=== PATIENT | female | born 1965 | race Caucasian/White ===

== ENCOUNTER → 2024-04-19 12:02 | Outpatient (REF) | payer OTHER, SELFPAY | LOC: HWRAD 12:02 | PROVIDERS: ATTENDING PHYSICIAN Nurse Practitioner Family | DX: M25.562 Pain in left knee (principal) | CPT/HCPCS: 73564 ==

== ENCOUNTER → 2024-04-30 14:06 | Outpatient (REF) | payer OTHER, SELFPAY | LOC: WDC 14:06 | PROVIDERS: ATTENDING PHYSICIAN Physician Assistant | DX: Z12.31 Encounter for screening mammogram for malignant neoplasm of breast (principal) | CPT/HCPCS: 77063; 77067 ==

== ENCOUNTER 2024-05-17 14:44 | Emergency (ER) | payer OTHER, SELFPAY ==
--- NOTE | 2024-05-17 14:49 | ED.MUSCINJ ---
HPI-Injury
<Elsa Kumari NP - Last Filed: 05/17/24 14:54>
General
Chief Complaint: Musculo-Skeletal Complaint
Time Seen by Provider: 05/17/24 15:49
<Tyler Armendariz PA-C - Last Filed: 05/17/24 20:21>
History of Present Illness-Injury
Initial Injury comments:
58-year-old female presents to the emergency department for evaluation of left knee pain for the past 3 months, acutely worse in the past 2 days. Denies any acute injuries or trauma. She feels excruciating pain to the medial joint when ambulating
or when attempting to range the knee. She is scheduled for an MRI next week and plans to see an orthopedist thereafter, has been taking intermittent doses of ibuprofen without much relief
ED Provider Triage
<Elsa Kumari FAMILY PARTNER - Last Filed: 05/17/24 14:54>
-
Patient seen by provider in Triage?: Seen in Triage
Attestation: A medical screening examination has been initiated by a qualified medical provider. Based on the assessment performed at this time, it has been determined that an emergent medical condition may exist and the patient has been informed
that further medical evaluation and possible additional diagnostic testing may be needed.
HPI: 58 yo female here for pain, swelling left knee. In Jan, doing pilates, sprained the left knee, later, injured it further walking up steps. Trouble walking, PCP ordered xray 04/19 which was neg. awaiting MRI 05/26 but today pain got suddenly
worse after grocery shopping, putting stuff away, wearing elastic brace, twisted the knee and now can't bear weight or move the knee without significant pain. Pain now 03/02, took nothing for the pain.
GENERAL: Alert , in no apparent distress
EYE: No visual abnormalities.
ENT: No visible abnormalities.
LUNGS: No acute respiratory distress
NEUROLOGICAL: Alert and oriented
SKIN: Skin intact. No visible changes.
MUSCULOSKELETAL: Moving extremities normally
PSYCH: Normal and appropriate interaction.
This is a medical evaluation conducted in person to initiate diagnostic evaluation and provide initial therapeutics. Please see further documentation by the treating clinician.
Past History
<Elsa Kumari FAMILY PARTNER - Last Filed: 05/17/24 14:54>
Past History
ED Past Medical History: Other (Adhesive capsulitis left shoulder)
ED Past Surgical History: , Orthopedic (Right ankle fracture repair) and Other (Inguinal hernia repair)
Social History
Tobacco: Non-smoker
Alcohol: Occasional
Drug: None
Personal:
Living: with family
Employment: Employed
Family History
Family History: Other (Noncontributory)
Review of Systems
<Tyler Armendariz PA-C - Last Filed: 05/17/24 20:21>
Review of Systems
Allergies reviewed?: Yes
All Other Systems: ROS reviewed and negative except as documented in HPI and ROS
Phy Exam
<Tyler Armendariz PA-C - Last Filed: 05/17/24 20:21>
Physical Exam
Physical Exam:
GEN: Well appearing, NAD, WDWN
HEENT: Oral mucosa moist, no scleral icterus
Cardiac: Regular rate
Lung: No respiratory distress, no tachypnea
MSK: No gross deformity or injuries. No left knee effusion, range of motion fully intact without crepitus however significant pain noted on exam. Negative medial laxity
Skin: Good color, no pallor or jaundice, no rashes
Neuro: AO x3, moves all extremities freely
Psych: Calm, cooperative
Injury Course
<Elsa Kumari FAMILY PARTNER - Last Filed: 05/17/24 14:54>
Orders/Labs/Results
Orders:
Orders
05/17/24 15:50
Ketorolac [Toradol] 30 mg IM NOW STA
<Tyler Armendariz PA-C - Last Filed: 05/17/24 20:21>
Orders/Labs/Results
Orders:
Orders
05/17/24 15:50
Ketorolac [Toradol] 30 mg IM NOW STA
<Tyler Armendariz PA-C - Last Filed: 05/17/24 20:21>
MDM/Problems Addressed
MDM/Problems Addressed:
Likely meniscus injury versus cartilaginous disruption versus bone bruise. As she has an upcoming MRI scheduled do not see any indication for x-ray at this time. Will treat with NSAIDs and knee immobilizer, weightbearing as tolerated, recommend
orthopedic follow-up
<Tyler Armendariz PA-C - Last Filed: 05/17/24 20:21>
*Critical Care Note
Total Time (30-74mins, 75-104mins- exclusive of procedures): Not Applicable
ED Attending Note
<Elsa Kumari FAMILY PARTNER - Last Filed: 05/17/24 14:54>
-
Portions of this chart may have been created with voice recognition software.� Occasional wrong word or��sound alike� substitutions may have occurred due to the inherent limitations of voice recognition software.
Discharge Plan
Departure
Patient Disposition: Home (Routine Discharge)
Date of Disposition: 05/17/24
Time of Disposition: 16:14
Patient with high blood pressure during this ER visit?: No
Discharge Problem:
Acute internal derangement of left knee
Instructions: Knee Sprain (DC)
Prescriptions:
New
celecoxib [Celebrex] 200 mg capsule
200 mg PO BID Qty: 20 0RF
No Action
sertraline 100 mg Tablet
100 mg PO DAILY
tolterodine 2 mg Capsule,Extended Release 24hr
2 mg PO DAILY PRN (Reason: Bladder spasm) Qty: 5 0RF
phenazopyridine 200 mg Tablet
200 mg PO Q8 Qty: 10 0RF
cephalexin 750 mg capsule
750 mg PO BID Qty: 10 0RF
Referrals:
Shanita Golden I., DO [Active] -
Activity Restrictions/Additional Instructions:
Ice, elevate, use immobilizer when upright (do not need to sleep with the brace)
Interventions
Interventions:
*Risk Screen - Suicide Last Done: 05/17/24 14:50
*General Assessment Last Done: 05/17/24 16:34
*Neglect/Abuse Screening Last Done: 05/17/24 14:50
ED- Fall Risk Assessment Last Done: 05/17/24 16:34
*ED COVID-19 Vaccine History Last Done: 05/17/24 16:34
*Nursing Disposition Last Done: 05/17/24 16:45
ED-Musculoskeletal Assessment Last Done: 05/17/24 16:34
Discharge Date and Time
Discharge Date/Time: 05/17/24 16:48
Print Language: THAI
[2024-05-17 14:50] VITALS: BP 108/64
[2024-05-17] MEDS: TORADOL 30 MG IM (15:53)
[2024-05-17 16:33] VITALS: BMI 30.8
== END 2024-05-17 16:48 | disposition home or self-care (01) ==
LOC: EMR 14:44
PROVIDERS: EMERGENCY PHYSICIAN Emergency Medicine; FAMILY PHYSICIAN Nurse Practitioner Family
DX: M23.92 Unspecified internal derangement of left knee (principal)
CPT/HCPCS: 99284; 29505; 96372

== ENCOUNTER → 2024-05-26 07:03 | Outpatient (REF) | payer OTHER, SELFPAY | LOC: MRI 3T 07:03 | PROVIDERS: ATTENDING PHYSICIAN Nurse Practitioner Family | DX: M25.562 Pain in left knee (principal) | CPT/HCPCS: 73721 ==

== ENCOUNTER 2024-10-25 06:18 | Day surgery (SDC) | payer OTHER, SELFPAY | END 2024-10-25 09:40 | disposition home or self-care (01) | LOC: GI 06:18 | PROVIDERS: ATTENDING PHYSICIAN Internal Medicine; FAMILY PHYSICIAN Physician Assistant | DX: Z12.11 Encounter for screening for malignant neoplasm of colon (principal); K64.9 Unspecified hemorrhoids; K57.30 Diverticulosis of large intestine without perforation or abscess without bleeding; D12.3 Benign neoplasm of transverse colon | CPT/HCPCS: 45385; 88305 ==

== ENCOUNTER → 2024-11-29 11:21 | Outpatient (REF) | payer OTHER, SELFPAY | LOC: RCS 11:21 | PROVIDERS: ATTENDING PHYSICIAN Specialist; FAMILY PHYSICIAN Physician Assistant | DX: Z01.818 Encounter for other preprocedural examination (principal) | CPT/HCPCS: 93005 ==

== ENCOUNTER → 2025-05-03 13:27 | Outpatient (REF) | payer OTHER, SELFPAY | LOC: WDC 13:27 | PROVIDERS: ATTENDING PHYSICIAN Physician Assistant | DX: Z12.31 Encounter for screening mammogram for malignant neoplasm of breast (principal) | CPT/HCPCS: 77063; 77067 ==